=== PATIENT | female | born 1975 | race Caucasian/White ===

== ENCOUNTER → 2016-08-22 | Outpatient (CLI) | payer BC ==
[~2016-08-22] MED LIST: BUSPAR DIVIDOSE15 MG PO; EFFEXOR-XR150 MG PO; MOTRIN 600600 MG/TAB PO; NORCO 325 MG-51 TAB PO; NORCO 325 MG-7.1 TAB PO; PERCOCET 325 MG1 TA2 PO; PRILOSEC 20MG20 MG PO; VENLAFAXINE225 MG PO; VESICARE10 MG PO; ZOFRAN ODT4 MG PO; ZOLOFT 100MG100 MG PO
== END ==
LOC: MC.RAD 08:30
DX: Z12.39 Encounter for other screening for malignant neoplasm of breast (principal)

== ENCOUNTER → 2016-10-24 | Outpatient (CLI) | payer BC | LOC: BHSO 08:15 | DX: F41.1 Generalized anxiety disorder (principal) ==

== ENCOUNTER → 2019-04-19 | Outpatient (CLI) | payer BC | LOC: MC.RAD 08:23 | DX: Z12.31 Encounter for screening mammogram for malignant neoplasm of breast (principal) ==

== ENCOUNTER → 2023-08-04 | Outpatient (CLI) | payer BC | LOC: MC.RAD 08:44 | DX: Z12.31 Encounter for screening mammogram for malignant neoplasm of breast (principal); N63.11 Unspecified lump in the right breast, upper outer quadrant ==

== ENCOUNTER → 2023-08-12 | Outpatient (CLI) | payer BC | LOC: MC.RAD 08:16 | DX: D24.1 Benign neoplasm of right breast (principal) ==